=== PATIENT | male | born 1970 | race Caucasian/White ===

== ENCOUNTER → 2016-12-26 | Outpatient (CLI) | payer BC ==
[2016-12-26 17:40] LABS: Non-African American GFR(MDRD) >60 (>60 ml/min/1.73 sqM)
== END | disposition home or self-care (01) ==
LOC: LABWHC1 17:13
PROVIDERS: ATTEND Physician Assistant
DX: Z01.812 Encounter for preprocedural laboratory examination (principal)
CPT/HCPCS: 36415; 82565

== ENCOUNTER → 2016-12-28 | Outpatient (CLI) | payer BC | LOC: RADMRIMAIN 06:20 | PROVIDERS: ATTEND Family Medicine | DX: G44.52 New daily persistent headache (NDPH) (principal) ==

== ENCOUNTER → 2016-12-29 | Outpatient (CLI) | payer BC | LOC: RADMRIMAIN 18:14 | PROVIDERS: ATTEND Family Medicine | DX: Z53.9 Procedure and treatment not carried out, unspecified reason (principal) ==

== ENCOUNTER 2017-05-27 09:29 | Emergency (ER) | payer BC ==
[2017-05-27 09:35] VITALS: BP 169/96; PULSE 67; RESP 18; TEMP 97.6
--- NOTE | 2017-05-27 10:17 | ED ---
General Adult HPI - General Chief complaint: Dental/Oral Stated complaint: left jaw swelling Time Seen by Provider: 05/27/17 09:51 Source: patient, RN notes reviewed Mode of arrival: ambulatory Limitations: no limitations - History of Present Illness Initial comments: Patient 47-year-old male who presents emergency room today with a chief complaint of increased dental pain and swelling. He does admit that he has a fractured tooth that occurred approximately 2 weeks ago. He states the child also tends to have it pulled. Patient states that he's noticed swelling starting yesterday increasing today. He denies any drainage or discharge. Denies any complaints or symptoms. Patient denies any recent fever, chills, shortness of breath, chest pain, back pain, abdominal pain, nausea or vomiting, numbness or tingling, dysuria or hematuria, constipation or diarrhea, headaches or visual changes, or any other complaints. - Related Data Home Medications Medication Instructions Recorded Confirmed Atorvastatin Calcium [Lipitor] 20 mg PO HS 12/28/15 05/27/17 Metoprolol Tartrate [Lopressor] 50 mg PO BID 12/28/15 05/27/17 Clobetasol Propionate [Temovate 1 applic TOPICAL BID 04/25/16 05/27/17 0.05% Cream] Desvenlafaxine Succinate [Pristiq 100 mg PO BID 04/25/16 05/27/17 ER] Furosemide [Lasix] 20 mg PO DAILY 04/25/16 05/27/17 HYDROcodone/APAP 10-325MG [[place] 1 tab PO Q6H PRN 04/25/16 05/27/17 10-325] Potassium Chloride ER [K-Dur 10] 10 meq PO DAILY 04/25/16 05/27/17 Warfarin [Coumadin] 5 mg PO SUTUWEFRSA 04/25/16 05/27/17 Warfarin [Coumadin] 7.5 mg PO MOTH 04/25/16 05/27/17 Previous Rx's Medication Instructions Recorded Penicillin V Potassium [Pen Vee K] 500 mg PO QID #40 tablet 05/27/17 Allergies Allergy/AdvReac Type Severity Reaction Status Date / Time lorazepam [From Ativan] AdvReac Unknown Verified 05/27/17 09:35 morphine AdvReac Unknown Verified 05/27/17 09:35 Review of Systems ROS Statement: Those systems with pertinent positive or pertinent negative responses have been documented in the HPI. ROS Other: All systems not noted in ROS Statement are negative. Past Medical History Past Medical History: Deep Vein Thrombosis (DVT), Hypertension, Skin Disorder, Sleep Apnea/CPAP/BIPAP Additional Past Medical History / Comment(s): short term memory loss from cardiac arrest sleep apnea restless leg syndrome History of Any Multi-Drug Resistant Organisms: None Reported Past Surgical History: Orthopedic Surgery Past Psychological History: No Psychological Hx Reported Smoking Status: Current every day smoker Past Alcohol Use History: Occasional Past Drug Use History: None Reported General Exam - General Exam Comments Initial Comments: General: The patient is awake and alert, in no distress, and does not appear acutely ill. Eye: Pupils are equal, round and reactive to light, extra-ocular movements are intact. No nystagmus. There is normal conjunctiva bilaterally. No signs of icterus. Ears, nose, mouth and throat: There are moist mucous membranes and no oral lesions. Mild swelling to the left side of the lower jaw. Tender in the gumline. Does have fractured tooth of tooth #21. Uvula midline and swallows without any difficulty. Neck: The neck is supple, there is no tenderness or JVD. Cardiovascular: There is a regular rate and rhythm. No murmur, rub or gallop is appreciated. Respiratory: Lungs are clear to auscultation, respirations are non-labored, breath sounds are equal. No wheezes, stridor, rales, or rhonchi. Musculoskeletal: Normal ROM, no tenderness. Strength 5/5. Sensation intact. Pulses equal bilaterally 2+. Neurological: A&O x 3. CN II-XII intact, There are no obvious motor or sensory deficits. Coordination appears grossly intact. Speech is normal. Skin: Skin is warm and dry and no rashes or lesions are noted. Psychiatric: Cooperative, appropriate mood & affect, normal judgment. Limitations: no limitations Course Vital Signs 05/27/17 09:33 Temperature 97.6 F Pulse Rate 67 Respiratory 18 Rate Blood Pressure 169/96 O2 Sat by Pulse 99 Oximetry Medical Decision Making - Medical Decision Making Visual be started on antibiotics advised follow-up dentist over the next 2 days. Disposition Clinical Impression: Dental abscess Disposition: HOME SELF-CARE Condition: Good Instructions: Dental Abscess (ED) Additional Instructions: Please use medication as discussed. Please follow-up with dentist over the next 2-5 days. Please return to emergency room if the symptoms increase or worsen or for any other concerns. Prescriptions: Penicillin V Potassium [Pen Vee K] 500 mg PO QID #40 tablet Referrals: Arianna Krishnamurthy DO [Primary Care Provider] - 1-2 days Time of Disposition: 10:15
== END 2017-05-27 10:32 | disposition home or self-care (01) ==
LOC: EC 09:29
DX: K04.7 Periapical abscess without sinus (principal); I10 Essential (primary) hypertension; F17.200 Nicotine dependence, unspecified, uncomplicated; Z86.718 Personal history of other venous thrombosis and embolism; Z88.5 Allergy status to narcotic agent; Z88.8 Allergy status to other drugs, medicaments and biological substances; Z79.01 Long term (current) use of anticoagulants; Z79.899 Other long term (current) drug therapy
CPT/HCPCS: 99283

== ENCOUNTER → 2017-06-29 | Outpatient (CLI) | payer BC ==
--- NOTE | 2017-06-29 17:48 | CONS ---
CONSULTATION DATE OF SERVICE: 06/29/2017 47-year-old gentleman has been evaluated in the [facility] for obstructive sleep apnea-hypopnea syndrome. HISTORY OF PRESENT ILLNESS/SLEEP WAKE EVALUATION: The patient has been diagnosed with obstructive sleep apnea in 2012, in severe range with apnea-hypopnea index 39.6. At that time, he was started on treatment with CPAP and continued to use CPAP until recently when his mask was broken and for the last several months he feels extremely sleepy even while he is using his CPAP. He also developed snoring. Occasionally he still needs to go to bathroom while he is using his machine. SLEEP SCHEDULE: His sleep schedule on working days from 10 p.m. to 5 a.m. and on weekends from midnight until 7 a.m. FALLING ASLEEP: No problems with falling asleep. No TV in bedroom. [place] Sleepiness Scale significantly increased to 15. Since previous sleep study, patient increased his weight about 30 pounds. 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 MEDICATIONS: Lamotrigine, metoprolol, Atorvastatin, , Eliquis. SOCIAL HISTORY: This patient is a smoker about 1 pack a day for 30 years. Alcohol consumption rarely. 2 beers a week. FAMILY HISTORY: Hypertension, hyperlipidemia, epilepsy, arthritis, asthma, sleep apnea, snoring, diabetes, restless legs. REVIEW OF SYSTEMS: Awakenings from sleep. Significant sleepiness during the day. Snoring even while using his CPAP machine. Increasing weight. PHYSICAL EXAM: gentleman without distress. BP 158/105, HR 78, RR 16, height 6 feet and 1 inches, weight 333, BMI 43.9, temperature 98.0. Oxygen saturation on room air 97%. Oropharynx: Tonsils present bilaterally. Short distance between soft palate and posterior pharyngeal wall. Wide neck. ABDOMEN: Obese. Neck Supple, no JVD. Thyroid is not palpable. LUNGS Clear to percussion and to auscultation. Good air exchange. No wheezing or rhonchi. HEART S1, S2 regular. No murmurs, gallops, or rubs. ABDOMEN: Obese. Soft and nontender. Bowel sounds are present. No organomegaly appreciated. EXTREMITIES No clubbing or cyanosis. 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 Cranial nerves 2 to 7 intact. There is no fasciculation or atrophy. noted. No focal deficits observed. IMPRESSION: 1. Severe obstructive sleep apnea-hypopnea syndrome by results of sleep study in 2012. The patient is on treatment with CPAP every night, but for the last several months, developed snoring and sleepiness while using his CPAP equipment. Wide neck. 2. Obesity BMI 43.9. Patient increased his weight from around 30 pounds since previous titration. 3. Hypertension. High blood pressure today in the office. 4. Hyperlipidemia. 5. History of left-sided pneumothorax in 2011. 6. History of deep vein thrombosis right leg 2007. 7. History of pulmonary embolism. 8. Status post right leg fracture many years ago. 9. Recently had been diagnosed with insufficient cardiac valve. 10.Smoker for 30 pack/years. PLAN: 1. Repeat CPAP titration for evaluation of effective CPAP pressure at the present time. I checked the patient's CPAP unit. CPAP pressure is 8 cm of water. 2. Prescription for full-face mask and other necessary supplies today. 3. Aggressive losing weight program. 4. Smoking cessation program. 5. Titration should be done slowly because patient has history of pneumothorax. 6. No driving if feeling sleepiness. 7. Sleep hygiene with regular time in bed for at least 7.5 hours. Thank you very much for referring this patient for consultation. Sincerely, Jim Faith MD, PhD, FAASM Diplomat of [place] [employer] [place] [employer] [facility] [facility] [place] MMODL / IJN: [id number] /
== END | disposition home or self-care (01) ==
LOC: SLEEP 15:31
PROVIDERS: ATTEND Internal Medicine
DX: G47.33 Obstructive sleep apnea (adult) (pediatric) (principal); I10 Essential (primary) hypertension; E78.5 Hyperlipidemia, unspecified; F17.210 Nicotine dependence, cigarettes, uncomplicated; E66.9 Obesity, unspecified; Z68.41 Body mass index [BMI] 40.0-44.9, adult; Z86.711 Personal history of pulmonary embolism; Z87.81 Personal history of (healed) traumatic fracture; Z79.01 Long term (current) use of anticoagulants; Z79.899 Other long term (current) drug therapy; Z86.718 Personal history of other venous thrombosis and embolism; I38 Endocarditis, valve unspecified; F17.200 Nicotine dependence, unspecified, uncomplicated
CPT/HCPCS: 99211

== ENCOUNTER 2018-01-21 19:59 | Emergency (ER) | payer BC ==
[2018-01-21 20:07] VITALS: RESP 18; TEMP 98
[2018-01-21] MEDS ORDERED: NITROGLYCERIN OINT 1 INCH/GM PACKET TOPICAL STA (20:21)
[2018-01-21] MEDS ORDERED: ASPIRIN 81 MG PO STA (20:21)
--- NOTE | 2018-01-21 20:24 | ED ---
General Adult HPI - General Chief complaint: Chest Pain Stated complaint: chest pain Time Seen by Provider: 01/21/18 20:10 Source: patient, RN notes reviewed Mode of arrival: ambulatory Limitations: no limitations - History of Present Illness Initial comments: Patient is a pleasant 47-year-old male presenting to the emergency Department with plaints of chest discomfort. Patient had minimal symptoms last night however worse today. Discomfort is left chest. Discomfort is positional. No associated dyspnea, nausea, or diaphoresis. No history of similar symptoms previously. Discomfort is mild at this point. No radiation of symptoms - Related Data Home Medications Medication Instructions Recorded Confirmed Atorvastatin Calcium [Lipitor] 20 mg PO HS 12/28/15 05/27/17 Metoprolol Tartrate [Lopressor] 50 mg PO BID 12/28/15 05/27/17 Clobetasol Propionate [Temovate 1 applic TOPICAL BID 04/25/16 05/27/17 0.05% Cream] Desvenlafaxine Succinate [Pristiq 100 mg PO BID 04/25/16 05/27/17 ER] Furosemide [Lasix] 20 mg PO DAILY 04/25/16 05/27/17 HYDROcodone/APAP 10-325MG [[place] 1 tab PO Q6H PRN 04/25/16 05/27/17 10-325] Potassium Chloride ER [K-Dur 10] 10 meq PO DAILY 04/25/16 05/27/17 Warfarin [Coumadin] 5 mg PO SUTUWEFRSA 04/25/16 05/27/17 Warfarin [Coumadin] 7.5 mg PO MOTH 04/25/16 05/27/17 Previous Rx's Medication Instructions Recorded Penicillin V Potassium [Pen Vee K] 500 mg PO QID #40 tablet 05/27/17 Allergies Allergy/AdvReac Type Severity Reaction Status Date / Time lorazepam [From Ativan] AdvReac Unknown Verified 01/21/18 20:06 morphine AdvReac Unknown Verified 01/21/18 20:06 Review of Systems ROS Statement: Those systems with pertinent positive or pertinent negative responses have been documented in the HPI. ROS Other: All systems not noted in ROS Statement are negative. Constitutional: Denies: fever Eyes: Denies: eye pain ENT: Denies: ear pain Respiratory: Denies: cough, dyspnea Cardiovascular: Reports: chest pain Endocrine: Denies: fatigue Gastrointestinal: Denies: abdominal pain Genitourinary: Denies: dysuria Musculoskeletal: Denies: back pain Skin: Denies: rash Neurological: Denies: weakness Past Medical History Past Medical History: Deep Vein Thrombosis (DVT), Hypertension, Skin Disorder, Sleep Apnea/CPAP/BIPAP Additional Past Medical History / Comment(s): short term memory loss from cardiac arrest sleep apnea restless leg syndrome History of Any Multi-Drug Resistant Organisms: None Reported Past Surgical History: Orthopedic Surgery Past Psychological History: No Psychological Hx Reported Smoking Status: Current every day smoker Past Alcohol Use History: Occasional Past Drug Use History: None Reported General Exam Limitations: no limitations General appearance: alert, in no apparent distress Head exam: Present: atraumatic Eye exam: Present: normal appearance, PERRL ENT exam: Present: normal oropharynx Neck exam: Present: normal inspection Respiratory exam: Present: normal lung sounds bilaterally, chest wall tenderness Cardiovascular Exam: Present: regular rate, normal rhythm Expanded Peripheral pulses: 2+: Radial (R), Radial (L), Posterior Tibialis (R), Posterior Tibialis (L) GI/Abdominal exam: Present: soft. Absent: tenderness Extremities exam: Present: normal inspection. Absent: pedal edema, calf tenderness Neurological exam: Present: alert Psychiatric exam: Present: normal affect, normal mood Skin exam: Present: normal color Course Vital Signs 01/21/18 01/21/18 20:04 21:30 Temperature 98.0 F Pulse Rate 67 69 Respiratory 18 18 Rate Blood Pressure 157/98 160/96 O2 Sat by Pulse 97 95 Oximetry EKG Findings - EKG Comments: EKG Findings:: Normal sinus rhythm 67. AL 160. QRS 82. QT 398. QTC 420. Left axis. Normal QRS. No acute ST change. Medical Decision Making - Medical Decision Making Patient reevaluated and resting comfortably in bed. Patient updated on results and plan. Case was discussed with Dr. Nolen, covering for Dr. Morris, who will admit. - Lab Data Result diagrams: 01/21/18 20:27 01/21/18 20:27 Lab Results 01/21/18 01/21/18 01/21/18 Range/Units 20:27 20:27 20:27 WBC 9.4 (3.8-10.6) k/uL RBC 4.90 (4.30-5.90) m/uL Hgb 14.6 (13.0-17.5) gm/dL Hct 45.0 (39.0-53.0) % MCV 91.8 (80.0-100.0) fL MCH 29.9 (25.0-35.0) pg MCHC 32.5 (31.0-37.0) g/dL RDW 12.6 (11.5-15.5) % Plt Count 219 (150-450) k/uL Neutrophils % 58 % Lymphocytes % 28 % Monocytes % 5 % Eosinophils % 6 % Basophils % 0 % Neutrophils # 5.5 (1.3-7.7) k/uL Lymphocytes # 2.7 (1.0-4.8) k/uL Monocytes # 0.5 (0-1.0) k/uL Eosinophils # 0.5 (0-0.7) k/uL Basophils # 0.0 (0-0.2) k/uL PT (9.0-12.0) sec INR (<1.2) APTT (22.0-30.0) sec Sodium 140 (137-145) mmol/L Potassium 4.4 (3.5-5.1) mmol/L Chloride 106 (98-107) mmol/L Carbon Dioxide 26 (22-30) mmol/L Anion Gap 8 mmol/L BUN 12 (9-20) mg/dL Creatinine 0.80 (0.66-1.25) mg/dL Est GFR (CKD-EPI)AfAm >90 (>60 ml/min/1.73 sqM) Est GFR (CKD-EPI)NonAf >90 (>60 ml/min/1.73 sqM) Glucose 190 H (74-99) mg/dL Calcium 9.3 (8.4-10.2) mg/dL Magnesium 1.8 (1.6-2.3) mg/dL Total Bilirubin 0.3 (0.2-1.3) mg/dL AST 24 (17-59) U/L ALT 49 (21-72) U/L Alkaline Phosphatase 62 (38-126) U/L Total Creatine Kinase 35 L (55-170) U/L CK-MB (CK-2) 0.5 (0.0-2.4) ng/mL CK-MB (CK-2) Rel Index 1.4 Troponin I <0.012 (0.000-0.034) ng/mL Total Protein 6.3 (6.3-8.2) g/dL Albumin 3.8 (3.5-5.0) g/dL 01/21/18 Range/Units 20:27 WBC (3.8-10.6) k/uL RBC (4.30-5.90) m/uL Hgb (13.0-17.5) gm/dL Hct (39.0-53.0) % MCV (80.0-100.0) fL MCH (25.0-35.0) pg MCHC (31.0-37.0) g/dL RDW (11.5-15.5) % Plt Count (150-450) k/uL Neutrophils % % Lymphocytes % % Monocytes % % Eosinophils % % Basophils % % Neutrophils # (1.3-7.7) k/uL Lymphocytes # (1.0-4.8) k/uL Monocytes # (0-1.0) k/uL Eosinophils # (0-0.7) k/uL Basophils # (0-0.2) k/uL PT 9.9 (9.0-12.0) sec INR 1.0 (<1.2) APTT 23.2 (22.0-30.0) sec Sodium (137-145) mmol/L Potassium (3.5-5.1) mmol/L Chloride (98-107) mmol/L Carbon Dioxide (22-30) mmol/L Anion Gap mmol/L BUN (9-20) mg/dL Creatinine (0.66-1.25) mg/dL Est GFR (CKD-EPI)AfAm (>60 ml/min/1.73 sqM) Est GFR (CKD-EPI)NonAf (>60 ml/min/1.73 sqM) Glucose (74-99) mg/dL Calcium (8.4-10.2) mg/dL Magnesium (1.6-2.3) mg/dL Total Bilirubin (0.2-1.3) mg/dL AST (17-59) U/L ALT (21-72) U/L Alkaline Phosphatase (38-126) U/L Total Creatine Kinase (55-170) U/L CK-MB (CK-2) (0.0-2.4) ng/mL CK-MB (CK-2) Rel Index Troponin I (0.000-0.034) ng/mL Total Protein (6.3-8.2) g/dL Albumin (3.5-5.0) g/dL - Radiology Data Radiology results: image reviewed (Chest x-ray shows no acute process.) Disposition Clinical Impression: Chest pain Disposition: ADMITTED IP TO THIS [facility] Referrals: Arianna Krishnamurthy DO [Primary Care Provider] - 1-2 days Decision Time: 21:37
[2018-01-21 20:40] LABS: Basophils % (A) 0 %; Eosinophils # (A) 0.5 k/uL (0-0.7); Eosinophils % (A) 6 %; HGB 14.6 gm/dL (13.0-17.5); Lymphocytes # (A) 2.7 k/uL (1.0-4.8); Lymphocytes % (A) 28 %; MCH 29.9 pg (25.0-35.0); MCHC 32.5 g/dL (31.0-37.0); MCV 91.8 fL (80.0-100.0); Mean Platelet Volume 8.3; Monocytes # (A) 0.5 k/uL (0-1.0); Monocytes % (A) 5 %; Neutrophils # (A) 5.5 k/uL (1.3-7.7); Neutrophils % (A) 58 %; Platelet Count 219 k/uL (150-450); RDW 12.6 % (11.5-15.5); WBC 9.4 k/uL (3.8-10.6)
[2018-01-21 20:48] LABS: Partial Thromboplastin Time 23.2 sec (22.0-30.0); Prothrombin Time 9.9 sec (9.0-12.0)
[2018-01-21 20:52] LABS: ALT 49 U/L (21-72); AST 24 U/L (17-59); Albumin 3.8 g/dL (3.5-5.0); Alkaline Phosphatase 62 U/L (38-126); Anion Gap 8 mmol/L; Blood Urea Nitrogen 12 mg/dL (9-20); Calcium 9.3 mg/dL (8.4-10.2); Carbon Dioxide 26 mmol/L (22-30); Chloride 106 mmol/L (98-107); Glucose 190 mg/dL (74-99); Magnesium 1.8 mg/dL (1.6-2.3); Potassium 4.4 mmol/L (3.5-5.1); Sodium 140 mmol/L (137-145); Total Bilirubin 0.3 mg/dL (0.2-1.3); Total Protein 6.3 g/dL (6.3-8.2)
--- NOTE | 2018-01-21 20:56 | XR ---
EXAMINATION TYPE: XR chest 2V DATE OF EXAM: 01/21/2018 COMPARISON: Chest radiograph 12/29/2015 HISTORY: Chest pain, remote history of heart attack TECHNIQUE: Frontal and lateral views of the chest are obtained. FINDINGS: There is no focal air space opacity, pleural effusion, or pneumothorax seen. The cardiac silhouette size is within normal limits. The osseous structures are intact. IMPRESSION: No acute cardiopulmonary process. No significant interval change.
[2018-01-21 21:00] LABS: Creatine Kinase 35 U/L (55-170)
[2018-01-21 21:11] LABS: Creatine Kinase MB 0.5 ng/mL (0.0-2.4); Troponin I <0.012 ng/mL (0.000-0.034)
[2018-01-21 21:31] VITALS: BP 160/96; PULSE 69
[2018-01-21] MEDS ORDERED: NITROGLYCERIN SL TABS 0.4 MG TAB SUBLINGUAL PRN (21:37)
[2018-01-22] MEDS ORDERED: NITROGLYCERIN OINT 1 INCH/GM PACKET TOPICAL SCH
[2018-01-22] MEDS ORDERED: ASPIRIN 325 MG TAB PO SCH (09:00)
== END 2018-01-21 21:57 | disposition left against medical advice (07) ==
LOC: EC 19:59 → 3OBS 21:37 → UNDOADMOB 21:37 → EC 21:57
DX: R07.89 Other chest pain (principal); I10 Essential (primary) hypertension; G47.30 Sleep apnea, unspecified; Z99.89 Dependence on other enabling machines and devices; F17.200 Nicotine dependence, unspecified, uncomplicated; Z86.718 Personal history of other venous thrombosis and embolism; Z79.01 Long term (current) use of anticoagulants; Z79.899 Other long term (current) drug therapy; Z88.5 Allergy status to narcotic agent; Z88.8 Allergy status to other drugs, medicaments and biological substances
CPT/HCPCS: 36415; 71046; 80053; 82550; 82553; 83735; 84484; 85025; 85610; 85730; 93005; 99285

== ENCOUNTER 2018-04-22 13:19 | Emergency (ER) | payer BC ==
[2018-04-22 13:27] VITALS: RESP 18
--- NOTE | 2018-04-22 14:05 | ED ---
General Adult HPI - General Chief complaint: Extremity Injury, Lower Stated complaint: Rt leg pain Time Seen by Provider: 04/22/18 13:36 Source: patient Mode of arrival: ambulatory Limitations: no limitations - History of Present Illness Initial comments: 47-year-old male with a history of DVT, hypertension no resents to the emergency department for a chief complaint of right leg pain 3 days. Patient states he sat in and asked given a liter all day on Monday and on his way home started have pain in the proximal lateral aspect of the right lower leg. Patient states he does have a history of blood clot and is concerned for that at this point. He denies any calf pain. He states he did fall onto his bilateral knees 2 weeks ago and is still having some pain in the knee from this. He denies any increased swelling since Monday in the knee. He does state that on Monday there is no erythema, however yesterday he did notice warmth and redness to the lateral aspect of the proximal right lower leg. Patient is currently on Elqiuis for past DVT and PE. Patient has no other complaints at this time including shortness of breath, chest pain, abdominal pain, nausea or vomiting, headache, or visual changes. - Related Data Home Medications Medication Instructions Recorded Confirmed Atorvastatin Calcium [Lipitor] 20 mg PO HS 12/28/15 05/27/17 Metoprolol Tartrate [Lopressor] 50 mg PO BID 12/28/15 05/27/17 Clobetasol Propionate [Temovate 1 applic TOPICAL BID 04/25/16 05/27/17 0.05% Cream] Desvenlafaxine Succinate [Pristiq 100 mg PO BID 04/25/16 05/27/17 ER] Furosemide [Lasix] 20 mg PO DAILY 04/25/16 05/27/17 HYDROcodone/APAP 10-325MG [[place] 1 tab PO Q6H PRN 04/25/16 05/27/17 10-325] Potassium Chloride ER [K-Dur 10] 10 meq PO DAILY 04/25/16 05/27/17 Warfarin [Coumadin] 5 mg PO SUTUWEFRSA 04/25/16 05/27/17 Warfarin [Coumadin] 7.5 mg PO MOTH 04/25/16 05/27/17 Previous Rx's Medication Instructions Recorded Penicillin V Potassium [Pen Vee K] 500 mg PO QID #40 tablet 05/27/17 Cephalexin [Keflex] 500 mg PO Q6HR 10 Days cap 04/22/18 Allergies Allergy/AdvReac Type Severity Reaction Status Date / Time lorazepam [From Ativan] AdvReac Unknown Verified 04/22/18 13:27 morphine AdvReac Unknown Verified 04/22/18 13:27 Review of Systems ROS Statement: Those systems with pertinent positive or pertinent negative responses have been documented in the HPI. ROS Other: All systems not noted in ROS Statement are negative. Past Medical History Past Medical History: Deep Vein Thrombosis (DVT), Hypertension, Skin Disorder, Sleep Apnea/CPAP/BIPAP Additional Past Medical History / Comment(s): short term memory loss from cardiac arrest sleep apnea restless leg syndrome History of Any Multi-Drug Resistant Organisms: None Reported Past Surgical History: Orthopedic Surgery Past Psychological History: No Psychological Hx Reported Smoking Status: Current every day smoker Past Alcohol Use History: Occasional Past Drug Use History: None Reported General Exam Limitations: no limitations General appearance: alert, in no apparent distress Head exam: Present: atraumatic, normocephalic, normal inspection Eye exam: Present: normal appearance, PERRL, EOMI. Absent: scleral icterus, conjunctival injection, periorbital swelling ENT exam: Present: normal exam, mucous membranes moist Neck exam: Present: normal inspection. Absent: tenderness, meningismus, lymphadenopathy Respiratory exam: Present: normal lung sounds bilaterally. Absent: respiratory distress, wheezes, rales, rhonchi, stridor Cardiovascular Exam: Present: regular rate, normal rhythm, normal heart sounds. Absent: systolic murmur, diastolic murmur, rubs, gallop, clicks Extremities exam: Present: full ROM (Full range of motion of the right lower extremity. Full range motion of the knee include infection and extension.), tenderness (Tenderness to the lateral proximal right lower leg over area of erythema.), normal capillary refill (Cap refill less than 2 seconds and dorsal pedis and PT pulse strong and Doppler), other (Erythema and increased warmth 10 cm x 8 cm to the proximal lateral aspect of the right lower leg.). Absent: calf tenderness (No calf tenderness, negative Homans sign.) Course Vital Signs 04/22/18 04/22/18 13:23 15:12 Temperature 97.5 F L 99.3 F Pulse Rate 89 92 Respiratory 18 18 Rate Blood Pressure 148/100 151/98 O2 Sat by Pulse 100 95 Oximetry Medical Decision Making - Medical Decision Making 47-year-old male presents to the emergency department for a chief complaint of erythema to the proximal lateral aspect of the right lower leg. Patient states he has had cellulitis before. He denies any fevers or chills at home. Area is about 8 x 10 cm. No erythema or increased warmth over the right knee. Neurovascular intact in the right lower extremity. On exam patient has full range of motion of the right knee and ankle. Ultrasound was negative besides for chronic DVT. No acute DVT. X-ray showed sclerosis without any acute findings. He does have small joint effusion in the right knee but he did fall 2 weeks ago and has had mild pain since that time. Dr. De La Rosa also saw the patient. At this time patient will be given a dose of IM Ancef and given Keflex prescription. Area was circled with a black marker. He will allow 24 hours for the antibiotic to work. If it is worsening he will return immediately to the emergency department. If he develops pain in his knee he will to return immediately to the emergency department. Otherwise she will follow up with primary care in 1-2 days for recheck. Disposition Clinical Impression: Cellulitis Disposition: HOME SELF-CARE Condition: Good Instructions: Cellulitis (ED) Additional Instructions: Please take antibiotic as directed. Please follow-up with primary care in 1-2 days. Please return to the emergency department if you have any worsening symptoms or fevers. Prescriptions: Cephalexin [Keflex] 500 mg PO Q6HR 10 Days cap Is patient prescribed a controlled substance at d/c from ED?: No Referrals: Arianna Krishnamurthy DO [Primary Care Provider] - 1-2 days Time of Disposition: 16:27
--- NOTE | 2018-04-22 15:00 | US ---
EXAMINATION TYPE: US venous doppler duplex LE RT DATE OF EXAM: 04/22/2018 2:42 PM COMPARISON: 04/25/2016 CLINICAL HISTORY: Pain. Pt states pain s/p right knee injury 2 days ago, h/o DVT right leg, currently on blood thinners SIDE PERFORMED: Right TECHNIQUE: The lower extremity deep venous system is examined utilizing real time linear array sonog liana with graded compression, doppler sonography and color-flow sonography. VESSELS IMAGED: External Iliac Vein (EIV) Common Femoral Vein Deep Femoral Vein Greater Saphenous Vein * Femoral Vein Popliteal Vein Small Saphenous Vein * Proximal Calf Veins (* superficial vessels) Right Leg: Negative for acute DVT, probable non-occluding chronic thrombus visualized mid fem V to p opliteal vein. IMPRESSION: There is no acute deep venous thrombosis. There is some thrombus on the wall of the mid f emoral vein consistent with mild chronic deep venous thrombosis. There is no significant change kiya red to old exam.
--- NOTE | 2018-04-22 15:35 | XR ---
EXAMINATION TYPE: XR knee complete RT DATE OF EXAM: 04/22/2018 COMPARISON: NONE HISTORY: Knee pain TECHNIQUE: 3 views FINDINGS: I see no fracture nor dislocation. There is some sclerosis in the proximal tibia related to old surgery. There is small knee joint effusion. IMPRESSION: No fracture seen. Small knee joint effusion.
[2018-04-22] MEDS ORDERED: ceFAZolin 1,000 MG VIAL IM STA (16:26)
[2018-04-22 16:45] VITALS: BP 145/95; PULSE 87; TEMP 97.2
== END 2018-04-22 16:39 | disposition home or self-care (01) ==
LOC: EC 13:19 → SUPCPDRO 13:19 → EC 16:39
DX: L03.115 Cellulitis of right lower limb (principal); M25.461 Effusion, right knee; M89.8X6 Other specified disorders of bone, lower leg; I10 Essential (primary) hypertension; G47.30 Sleep apnea, unspecified; F17.200 Nicotine dependence, unspecified, uncomplicated; Z88.5 Allergy status to narcotic agent; Z88.8 Allergy status to other drugs, medicaments and biological substances; Z79.01 Long term (current) use of anticoagulants; Z79.52 Long term (current) use of systemic steroids; Z79.899 Other long term (current) drug therapy; Z86.718 Personal history of other venous thrombosis and embolism; Z99.89 Dependence on other enabling machines and devices; Z86.711 Personal history of pulmonary embolism; Z87.2 Personal history of diseases of the skin and subcutaneous tissue
CPT/HCPCS: 73562; 93971; 99284; 96372; J0690

== ENCOUNTER → 2020-04-02 | Outpatient (CLI) | payer BC ==
--- NOTE | 2020-04-02 17:14 | CONS ---
CONSULTATION DATE OF SERVICE: 04/02/2020 A 49-year-old gentleman who has [facility] for obstructive sleep apnea-hypopnea syndrome. HISTORY OF PRESENT ILLNESS/SLEEP WAKE EVALUATION: The patient has history of obstructive sleep apnea diagnosed about 8 years ago. He was treated with CPAP but stopped using CPAP 1 year ago. Presently his sleep schedule from 10 p.m. to 5:30 a.m. on working days and from 2 a.m. until 10 a.m. on weekends. No problem with falling asleep. No TV in bedroom. Usually sleeps on the side position. According to his , he has loud snoring. He wakes up from sleep once. Positive history of restless legs during the falling asleep and during the night. No history of hypnagogic hallucinations, sleep paralysis or cataplexy. Kyle Sleepiness Scale is 10. PAST MEDICAL HISTORY: According to patient about 8 years ago he had bilateral pneumothorax, hypertension, hyperlipidemia, psoriasis, psoriatic arthritis, some episodes of mood changes, DVT, PE. PAST SURGICAL HISTORY: Catheter insertion to the lung on the left side in 2011 for pneumothorax. MEDICATIONS: Lisinopril 10 mg once daily, Lamictal 25 mg 2 times a day, Xarelto 20 mg once daily, Lopressor 50 mg 1 tablet in the morning and 2 in p.m., atorvastatin 20 mg once daily, desvenlafaxine ER 100 mg one tablet twice daily, Augmentin 875 mg-125 mg tablets 2 times a day, Neomycin hydrocortisone 1% ear solution 4 drops to left ear. SOCIAL HISTORY: Smoking 2 packs a day for 30 years, quit 2 months ago. Alcohol consumption rarely. FAMILY HISTORY: Hypertension, snoring, during the sleep. REVIEW OF SYSTEMS: Awakenings from sleep, sleepiness during the day. PHYSICAL EXAM: A gentleman without distress, BP 149/92, HR 72, RR 15, height 6, 1, weight 305, body mass index 40.2, temperature 98.4, oxygen saturation at room air 98%. OROPHARYNX: Wide pillars. Mallampati 2. NECK: Wide, 18.5 inches in circumference. ABDOMEN: Obese. LUNGS: Clear to percussion and to auscultation. Good air exchange. No wheezing or rhonchi. HEART: S1, S2 regular. No murmurs, gallops, or rubs. EXTREMITIES: No clubbing or cyanosis. MEDICAL PATHOLOGIST: Awake, alert, and oriented X3. Cranial nerves 2 to 7 intact. There is no fasciculation or atrophy. noted. No focal deficits observed. IMPRESSION: 1. Loud snoring, witnessed episodes of stopped breathing during sleep. History of obstructive sleep apnea. Wide neck. Sleepiness. Kyle Sleepiness Scale is 10. Obstructive sleep apnea-hypopnea syndrome. 2. History of bilateral pneumothorax about 8 years ago before patient was treated with CPAP. 3. Hypertension. 4. Hyperlipidemia. 5. Episodes of mood changes. 6. Psoriasis. 7. History of psoriatic arthritis. 8. History of DVT, history of PE. PLAN: 1. Polysomnography for evaluation of patient's breathing during sleep. 2. CPAP/BiPAP titration if sleep study confirms obstructive sleep apnea-hypopnea syndrome. 3. Preferable position during sleep on the side. 4. No driving if patient feels any sleepiness. 5. I will see patient for follow up visit to explain results of testing and following plan. Thank you very much for referring this patient for consultation. Sincerely, Jim Faith MD, PhD, FAASM Diplomat of [employer] [facility] [place] MMODL / IJN: [id number] /
== END | disposition home or self-care (01) ==
LOC: SLEEP 15:11
PROVIDERS: ATTEND Internal Medicine
DX: G47.33 Obstructive sleep apnea (adult) (pediatric) (principal); I10 Essential (primary) hypertension; E78.5 Hyperlipidemia, unspecified; F39 Unspecified mood [affective] disorder; L40.9 Psoriasis, unspecified; Z86.718 Personal history of other venous thrombosis and embolism; Z86.711 Personal history of pulmonary embolism; Z87.39 Personal history of other diseases of the musculoskeletal system and connective tissue; Z87.09 Personal history of other diseases of the respiratory system
CPT/HCPCS: 99211

== ENCOUNTER → 2024-09-26 | Outpatient (CLI) | payer BC ==
[~2024-09-26] MED LIST: REGADENOSON 0.4 MG/5 ML SYRINGE IV PRN
[2024-09-26 07:42] LABS: African American GFR (CKD) >90 (>60 ml/min/1.73 sqM); Blood Urea Nitrogen 12 mg/dL (9-20); Non-African American GFR(CKD) >90 (>60 ml/min/1.73 sqM)
--- NOTE | 2024-09-26 08:38 | CT ---
EXAMINATION TYPE: CT angio chest DATE OF EXAM: 09/26/2024 8:08 AM COMPARISON: None CLINICAL INDICATION: Male, 54 years old with history of R07.9 chest pain; CHEST PAIN TECHNIQUE: CT of the chest after administration of 100 ml mL of Isovue 370, MIP images are created and reviewed these are created on a separate workstation. Coronal and sagittal reconstructions performed. CT DLP: 688.70 mGycm, Automated exposure control for dose reduction was used. FINDINGS: Heart is normal size without pericardial effusion. No significant coronary artery calcifications are identified on this exam. Aortic root borderline aneurysmal 4.0 cm. Ascending aorta mildly aneurysmal 4.2 cm. Proximal arch mildly aneurysmal 4.3 cm. Conventional arterial vessel branching anatomy. Ectatic upper descending thoracic aorta at 3.2 cm. Limited enhancement within the aorta. No dissection is identified. Satisfactory opacification of the pulmonary arterial system. Borderline to mildly enlarged caliber ma in and right right and left pulmonary arteries up to 2.6 cm may reflect underlying pulmonary arterial hypertension. No pulmonary embolus is seen. Nonenlarged calcified right hilar and subcarinal lymph nodes suggest sequela prior granulomatous dise ase. Minimal scattered emphysematous change. Benign calcified granuloma right midlung, axial image 78. No consolidation or pleural effusion. Visualized upper abdomen shows no gross abnormality. Bones: No osseous destructive process. IMPRESSION: 1. Mildly aneurysmal ascending aorta up to 4.3 cm. Limited enhancement of the aorta but without convi ncing findings of acute aortic pathology. 2. No evidence for pulmonary embolus. 3. Minimal emphysematous change. Possible underlying pulmonary hypertension. Evidence of prior granul omatous disease. [facility], , 09/26/2024 8:35 AM
--- NOTE | 2024-09-26 13:38 | NM ---
EXAMINATION TYPE: NM stress lexiscan cardiolite DATE OF EXAM: 09/26/2024 COMPARISON: NONE CLINICAL INDICATION: Male, 54 years old with history of R07.9 chest pain; TECHNIQUE: After the intravenous administration of 10.3 mCi Tc 99m Sestamibi - Cardiolite resting SP ECT images acquired 45 minutes post injection. The patient received 0.4mg Lexiscan, 26.1 mCi Tc 99m Sestamibi - Stress images obtained [address] injection FINDINGS: Review of stress and rest SPECT images demonstrates no distinct perfusion abnormality. Gated analysi s shows normal wall motion with an estimated left ventricular ejection fraction of 64 %. TID calcula radha at 0.99, within normal limits. IMPRESSION: No scintigraphic evidence for reversible ischemia. [facility], , 09/26/2024 1:35 PM
--- NOTE | 2024-09-26 17:11 | CA ---
Lexiscan Nuclear Stress Test Report Name: Adria Rosales Exam Date: 09/26/2024 10:45 Exam Location: [place] Stress Ht (in): 73 Wt (lb): 275 BSA: 2.46 Ordering Phys: Abhishek Krishnamurthy MD Referring Phys: ABHISHEK KRISHNAMURTHY Technologist: COLLEEN SHAW Age: 54 Gender: M : 1970 Procedure CPT: Indications: R07.9 CHEST PAIN ICD-10 Codes: Patient History: Medications: METOPROLOL,,,, LISINOPRIL,,,, ATORVASTATIN,,,, LAMOTRIGIRE,,,, DESVENLAFAXIN,,, Meds past 24 hrs: Pretest Chest Pain: STRESS TEST Lexiscan Protocol Exercise Duration (min:sec): 02:[address] Depressions (mm): Angina Score: García Score: Resting HR (bpm): 54 Peak HR (bpm): 66 Resting BP (mmHg): 119 / 90 Peak BP (mmHg): 132 / 94 MPHR: 166 Target HR: 141 % MPHR: 40 METS: 1.0 Total Dose: Peak Dose: Atropine: Double Product: 8712 BP Response: Stress Termination: INFUSION COMPLETE Stress Symptoms: NO SYMPTOMS Stress Summary: ECG ANALYSIS Resting ECG: Stress ECG: CONCLUSIONS Indication: Chest pain shortness of breath palpitations hypertension prediabetes dyslipidemia and tobacco use Lexiscan stress test No ECG abnormalities during infusion. No ECG evidence for ischemia Dr. Osei Aranda MD (Electronically Signed) Final Date: 26 September 2024 17:10
== END | disposition home or self-care (01) ==
LOC: RADCTMAIN 07:05
PROVIDERS: ATTEND Family Medicine
DX: I71.21 Aneurysm of the ascending aorta, without rupture (principal); J43.9 Emphysema, unspecified; I20.89 Other forms of angina pectoris; R00.2 Palpitations; R42 Dizziness and giddiness; R22.0 Localized swelling, mass and lump, head; I10 Essential (primary) hypertension; R73.03 Prediabetes; E78.5 Hyperlipidemia, unspecified; Z72.0 Tobacco use
CPT/HCPCS: 93017; 82565; 84520; 71275; 78452; A9500; J2785; Q9967